=== PATIENT | male | born 1995 | race African-American/Black ===

== ENCOUNTER 2022-09-20 01:30 | Emergency (ER) | payer MEDICAID ==
[~2022-09-20] VITALS: Ht 165.1 cm; Wt 85.0 kg
[2022-09-20 05:02] LABS: BASOPHILS % 0.6 % (0.0-2.0); EOSINOPHILS % 0.5 % (0.0-5.0); HEMATOCRIT. 40.2 % (42.0-52.0); HEMOGLOBIN. 13.7 g/dL (14.0-18.0); MEAN CORPUSCULAR HEMOGLOBIN 31.2 pg (28.0-32.0); MEAN CORPUSCULAR VOLUME 91.2 fL (80.0-94.0); MEAN PLATELET VOLUME 8.5 fl (7.4-10.4); MONOCYTES % 5.4 % (2.0-8.0); NEUTROPHILS % 78.5 % (40.0-76.0); PLATELET 300 x1000/uL (130-400); RED CELL DISTRIBUTION WIDTH 13.9 % (11.6-14.6)
[2022-09-20 05:22] LABS: CHLORIDE 106 mEq/L (98-107)
[2022-09-20 05:32] LABS: ETHANOL BLOOD < 10 mg/dL
[2022-09-20 11:36] VITALS: BP 128/77
== END 2022-09-20 11:57 | disposition home or self-care (01) ==
LOC: ER 01:30 → EDBD 01:30 → ER 11:57
DX: R45.1 Restlessness and agitation (principal)
CPT/HCPCS: 36415; 80053; 80307; 80320; 80329; 85025; 99285; G0480

== ENCOUNTER 2023-06-22 17:58 | Emergency (ER) | payer SELFPAY ==
[~2023-06-22] VITALS: Ht 170.2 cm; Wt 87.0 kg
[2023-06-22 18:00] VITALS: BP 125/66; TEMP 97.9; O2SAT 100
[2023-06-22] MEDS ORDERED: ALBUTEROL (0.083%) 2.5MG/3ML NEB HHN STA (18:28)
[2023-06-22] MEDS ORDERED: PREDNISONE 20MG TABLET PO STA (18:28)
[2023-06-22 19:00] VITALS: PULSE 87; RESP 20
[2023-06-23] MEDS ORDERED: P50 MT (00:08)
== END 2023-06-23 02:07 | disposition home or self-care (01) ==
LOC: ER 17:58
DX: J45.901 Unspecified asthma with (acute) exacerbation (principal)
CPT/HCPCS: 94640; 99283; J7512; Z7610 ×3